=== PATIENT | male | born 1980 ===

== ENCOUNTER → 2024-02-02 10:37 | Outpatient (CLI) | payer OTHER, SELFPAY ==
--- NOTE | 2024-02-02 10:40 | DI.RAD.S_ITS ---
PROCEDURE: XR SHOULDER RT MIN 2V INDICATIONS: arthritis TECHNIQUE: 3 views of the shoulder were acquired. COMPARISON: None. FINDINGS: Bones: No fractures or dislocations. No suspicious bony lesions. Visualized ribs appear intact. Mild osteoarthritis of the glenohumeral joint and acromioclavicular joint. Soft tissues: No suspicious soft tissue calcifications. IMPRESSION: 1. No acute fracture or subluxation. 2. Mild osteoarthritis of the glenohumeral joint and acromioclavicular joint. Dictated by: Abhilash Nelson M.D. on 02/02/2024 at 15:26 Approved by: Abhilash Nelson M.D. on 02/02/2024 at 15:28
--- NOTE | 2024-02-02 10:40 | DI.RAD.S_ITS ---
PROCEDURE: XR SHOULDER LT MIN 2V INDICATIONS: arthritis TECHNIQUE: 3 views of the shoulder were acquired. COMPARISON: None. FINDINGS: Bones: No fractures or dislocations. No suspicious bony lesions. Visualized ribs appear intact. Mild osteoarthritis of the glenohumeral joint. Soft tissues: No suspicious soft tissue calcifications. IMPRESSION: 1. No acute fracture or dislocation. 2. Mild osteoarthritis of the glenohumeral joint. Dictated by: Abhilash Nelson M.D. on 02/02/2024 at 15:23 Approved by: Abhilash Nelson M.D. on 02/02/2024 at 15:25
== END ==
LOC: RAD 10:39
PROVIDERS: Referring Provider Chiropractor; Visit Provider Chiropractor
DX: M13.811 Other specified arthritis, right shoulder (principal); M13.812 Other specified arthritis, left shoulder
CPT/HCPCS: 73030